=== PATIENT | male | born 1940 | race Caucasian/White ===

== ENCOUNTER → 2019-01-24 | Day surgery (SDC) | payer OTHER ==
[~2019-01-24] MED LIST: AMILODIPINE PO; CARVEDILOL25 MG PO; CLOPIDOGREL PO; HUMLOG; LANSOPRAZOLE30 MG PO; MIRVASO30 GM; TEMAZEPAM30 MG PO; ZOCOR40 MG PO; [UNRECOGNIZED DRUG - OTHER]; [UNRECOGNIZED DRUG - OTHER] PO
== END | disposition home or self-care (01) ==
LOC: ADM 01-23 07:00 → CIR.AMB 06:27
DX: M19.042 Primary osteoarthritis, left hand (principal)